=== PATIENT | female | born 1990 | race Caucasian/White ===

== ENCOUNTER 2016-05-18 17:34 | Emergency (ER) | END 2016-05-18 20:18 | disposition home or self-care (01) | DX: R51 Headache (principal); H53.8 Other visual disturbances ==

== ENCOUNTER 2016-12-26 09:43 | Emergency (ER) | payer OTHER ==
[~2016-12-26] VITALS: Ht 157.5 cm; Wt 55.0 kg
[~2016-12-26 09:43] MED LIST: ACET500C5 PO; CEPH-443 PO; IBUP400T22 PO; ONDA4TAB14 PO
[2016-12-26 09:47] VITALS: Ht 157.5 cm; Wt 55.0 kg
--- NOTE | 2016-12-26 10:14 | ERD ---
ER Documentation Chief Complaint Chief Complaint PAINFUL URINATION X 1 DAY HPI 26-year-old female otherwise healthy presents with painful urination and urgency 1 day. Patient states that her symptoms began yesterday afternoon just describes a burning sensation and pressure sensation in her suprapubic region. She has not had any fevers or chills, vomiting or hematuria or flank pain. She states that her last menstrual period was a week ago. Since then she has not had any vaginal bleeding, or abnormal vaginal discharge. ROS All systems reviewed and are negative except as per history of present illness. Medications Home Meds Active Scripts Phenazopyridine Hcl* (Pyridium*) 100 Mg Tab, 100 MG PO TID Y for URINARY PAIN, # 8 TAB Prov:EVANS ALEJANDRO PA-C 12/26/16 Nitrofurantoin Monohyd Macrocr* (Macrobid*) 100 Mg Capsr, 100 MG PO BID for 7 Days, CAP Prov:EVANS ALEJANDRO PA-C 12/26/16 Ondansetron (Ondansetron Odt) 4 Mg Tab.rapdis, 4 MG PO Q6H Y for NAUSEA AND/OR VOMITING, #10 TAB Prov:LYNDON DIAMOND PA-C 05/18/16 Acetaminophen* (Tylophen*) 500 Mg Capsule, 1 CAP PO Q6H Y for PAIN AND OR ELEVATED TEMP, #20 CAP Prov:LYNDON DIAMOND PA-C 05/18/16 Cephalexin* (Keflex*) 500 Mg Capsule, 500 MG PO TID for 7 Days, #21 CAP 0 Refills Prov:KAILASH GARCIA PA-C 09/03/15 Ibuprofen* (Motrin*) 400 Mg Tab, 400 MG PO Q6 for 7 Days, #30 TAB 0 Refills Prov:KAILASH GARCIA PA-C 09/03/15 Allergies Allergies: Coded Allergies: No Known Allergy (Unverified , 09/02/15) PMhx/Soc Hx Alcohol Use: No Hx Substance Use: No Hx Tobacco Use: No Physical Exam Vitals Vital Signs Date Time Temp Pulse Resp B/P Pulse Ox O2 Delivery O2 Flow Rate FiO2 12/26/16 09:47 98.5 76 16 111/57 100 Physical Exam General: Well-developed, well-nourished. The patient appears in no acute distress. HEENT: Head is normocephalic, atraumatic. No scleral icterus. Neck: Supple. Nontender. Lungs: Clear to auscultation. Normal air movement. Heart: Regular rate and rhythm. S1 and S2 are normal. No murmurs, gallops, or rubs. Abdomen: Nondistended. Soft, nontender, no CVA tenderness Extremities: No clubbing or cyanosis. Moving extremities x 4. No weakness. Neurologic: Alert and oriented 3. No focal deficits. Normal speech and gait. Skin: Normal turgor. No rash or lesions. Results 24 hrs Laboratory Tests Test 12/26/16 10:19 Bedside Urine pH (LAB) 7.5 Bedside Urine Protein (LAB) Negative Bedside Urine Glucose (UA) Negative Bedside Urine Ketones (LAB) Negative Bedside Urine Blood Negative Bedside Urine Nitrite (LAB) Negative Bedside Urine Leukocyte Esterase (L Negative Procedures/MDM 26-year-old female comes in with painful urination, urgency and frequency 1 day , most consistent with a urinary tract infection. Urine is negative at this time, but no other history concerning for PID, cervicitis, acute appendicitis, ovarian torsion, ectopic . She was started on Macrobid, Pyridium, and is to recheck her symptoms early next week with her primary care doctor. Departure Diagnosis: Primary Impression: Dysuria Condition: EVANS Ortiz PA-C Dec 26, 2016 10:14
[2016-12-26 10:21] LABS: URINE BLOOD (Dip) POC Negative (NEGATIVE)
[2016-12-26] MEDS ORDERED: NITR-58 PO (10:53)
[2016-12-26] MEDS ORDERED: PHEN-537 PO (10:53)
[2016-12-26 11:20] VITALS: TEMP 98.1
== END 2016-12-26 11:20 | disposition home or self-care (01) ==
LOC: FTE 09:43
DX: R30.0 Dysuria (principal)
CPT/HCPCS: 81003; Z7502; 99283

== ENCOUNTER 2017-01-01 20:12 | Emergency (ER) | payer OTHER ==
[~2017-01-01] VITALS: Ht 160 cm; Wt 56.2 kg
[~2017-01-01 20:12] MED LIST changes: +NITR-58 PO; +PHEN-537 PO
[2017-01-01 20:24] VITALS: Ht 160 cm; Wt 56.2 kg
[2017-01-01 23:45] LABS: URINE BLOOD (Dip) POC Trace-intact (NEGATIVE)
[2017-01-01] MEDS ORDERED: NAPR-260 PO (23:55)
[2017-01-01] MEDS ORDERED: CIPR500T4 PO (23:55)
[2017-01-01] MEDS ORDERED: CEPH-443 PO (23:59)
[2017-01-02] MEDS ORDERED: LIDOCAINE 1% (MDV) 20 ML INJ SC ONE
[2017-01-02] MEDS ORDERED: CEFTRIAXONE 1 GM INJ IM ONE
--- NOTE | 2017-01-02 17:33 | ERD ---
ER Documentation Chief Complaint Chief Complaint unable to urinate fully x1 day, recently diagnosed with UTI a week ago HPI Patient is a 26-year-old female presenting to the emergency department with complaints of urinary hesitancy, dribbling, dysuria intermittently for 1 week. The patient is here approximately 1 week ago with similar symptoms, finished a course of Macrobid, but continues to have symptoms. She denies hematuria, fevers, back pain, flank pain, nausea, vomiting, diarrhea, or other symptoms at this time. Symptoms are moderate in severity and intermittent at this time. ROS All systems reviewed and are negative except as per history of present illness. Medications Home Meds Active Scripts Cephalexin* (Keflex*) 500 Mg Capsule, 500 MG PO TID for 10 Days, #30 CAP Prov:DEE MARTINEZ PA-C 01/01/17 Naproxen* (Naprosyn*) 500 Mg Tablet, 500 MG PO BID Y for PAIN AND/OR INFLAMMATION, #20 TAB Prov:DEE MARTINEZ PA-C 01/01/17 Phenazopyridine Hcl* (Pyridium*) 100 Mg Tab, 100 MG PO TID Y for URINARY PAIN, # 8 TAB Prov:EVANS ALEJANDRO PA-C 12/26/16 Nitrofurantoin Monohyd Macrocr* (Macrobid*) 100 Mg Capsr, 100 MG PO BID for 7 Days, CAP Prov:EVANS ALEJANDRO PA-C 12/26/16 Ondansetron (Ondansetron Odt) 4 Mg Tab.rapdis, 4 MG PO Q6H Y for NAUSEA AND/OR VOMITING, #10 TAB Prov:LYNDON DIAMOND PA-C 05/18/16 Acetaminophen* (Tylophen*) 500 Mg Capsule, 1 CAP PO Q6H Y for PAIN AND OR ELEVATED TEMP, #20 CAP Prov:LYNDON DIAMOND PA-C 05/18/16 Cephalexin* (Keflex*) 500 Mg Capsule, 500 MG PO TID for 7 Days, #21 CAP 0 Refills Prov:KAILASH GARCIA PA-C 09/03/15 Ibuprofen* (Motrin*) 400 Mg Tab, 400 MG PO Q6 for 7 Days, #30 TAB 0 Refills Prov:KAILASH GARCIA PA-C 09/03/15 Discontinued Scripts Ciprofloxacin Hcl* (Ciprofloxacin Hcl*) 500 Mg Tablet, 500 MG PO BID for 10 Days , #20 TAB Prov:DEE MARTINEZ PA-C 01/01/17 Allergies Allergies: Coded Allergies: No Known Allergy (Unverified , 01/01/17) PMhx/Soc Medical and Surgical Hx: pt denies Medical Hx, pt denies Surgical Hx Hx Alcohol Use: No Hx Substance Use: No Hx Tobacco Use: No Smoking Status: Never smoker Physical Exam Vitals Vital Signs Date Time Temp Pulse Resp B/P Pulse Ox O2 Delivery O2 Flow Rate FiO2 01/01/17 20:24 99.9 81 18 105/65 98 Physical Exam Const: Nontoxic, well-appearing female in no acute distress. Head: Atraumatic Eyes: Normal Conjunctiva ENT: Normal External Ears, Nose and Mouth. Neck: Full range of motion..~ No meningismus. Resp: Clear to auscultation bilaterally Cardio: Regular rate and rhythm, no murmurs Abd: Soft, non tender, non distended. Normal bowel sounds Skin: No petechiae or rashes Back: No midline or flank tenderness. No CVA tenderness. Ext: No cyanosis, or edema Neur: Awake and alert Psych: Normal Mood and Affect Results 24 hrs Laboratory Tests Test 01/01/17 23:43 Bedside Urine pH (LAB) 5.0 Bedside Urine Protein (LAB) 2+ Bedside Urine Glucose (UA) 0.25% Bedside Urine Ketones (LAB) 2+ Bedside Urine Blood Trace-intact Bedside Urine Nitrite (LAB) Positive Bedside Urine Leukocyte Esterase (L 3+ Current Medications Medications (Trade) Dose Ordered Sig/Amilcar Route PRN Reason Start Time Stop Time Status Last Admin Dose Admin Ceftriaxone Sodium (Rocephin) 1 gm ONCE ONCE IM 01/02/17 00:00 01/02/17 00:01 DC 01/02/17 00:25 Lidocaine (Xylocaine 1% (Mdv) 20 ml) 20 ml ONCE ONCE SC 01/02/17 00:00 01/02/17 00:01 DC 01/02/17 00:25 Procedures/MDM Patient is a 26-year-old female presented to the emergency department for dysuria. Patient recently finished a course of Macrobid. Urine dip shows 2+ protein, 3+ leukocytes, positive nitrates, concerning for uncomplicated pyelonephritis. Patient is afebrile and vital signs remained stable throughout the ED course. Patient was given IM Rocephin to treat the pyelonephritis. Low suspicion for sepsis or other emergent conditions. She is stable for outpatient management with a perception for Keflex. She agreed with the discharge plan a diagnosis. No evidence of life-threatening pathology at time of discharge. Pt/family in agreement with discharge plan/diagnosis. Pt/family advised to return immediately with any new or worsening symptoms. Follow-up with primary care physician within the next 1-2 days. Disclaimer: Inadvertent spelling and grammatical errors are likely due to EHR/dictation software use and do not reflect on the overall quality of patient care. Also, please note that the electronic time recorded on this note does not necessarily reflect the actual time of the patient encounter. Departure Diagnosis: Primary Impression: Pyelonephritis Condition: Fair Patient Instructions: Pyelonephritis, Female (Adult) Referrals: [facility] YOU HAVE RECEIVED A MEDICAL SCREENING EXAM AND THE RESULTS INDICATE THAT YOU DO NOT HAVE A CONDITION THAT REQUIRES URGENT TREATMENT IN THE EMERGENCY DEPARTMENT. FURTHER EVALUATION AND TREATMENT OF YOUR CONDITION CAN WAIT UNTIL YOU ARE SEEN IN YOUR DOCTORS OFFICE WITHIN THE NEXT 1-2 DAYS. IT IS YOUR RESPONSIBILITY TO MAKE AN APPOINTMENT FOR FOLOW-UP CARE. IF YOU HAVE A PRIMARY DOCTOR --you should call your primary doctor and schedule an appointment IF YOU DO NOT HAVE A PRIMARY DOCTOR YOU CAN CALL OUR PHYSICIAN REFERRAL HOTLINE AT IF YOU CAN NOT AFFORD TO SEE A PHYSICIAN YOU CAN CHOSE FROM THE FOLLOWING [facility] [address] [facility]. [facility] [address] [facility]. [facility] [address] [facility] [facility] [address] [facility]. [facility] [address] [facility]. [facility]. [address] Additional Instructions: Follow up with your PCP within the next 1-3 days for a repeat evaluation. If you require a referral to a specialist, your Primary Care Provider may be able to provide this for you. In most patient cases, a referral is not required. If you have further questions regarding this matter, please ask your Primary Care Provider. Return the the emergency department immediately if symptoms worsen or change. If you have any questions regarding medications, ask your pharmacist or us before you leave. If any adverse reactions, occur while taking your medications, discontinue the treatment and return to the emergency department immediately. If any new or worsening symptoms, uncontrolled fevers, or other unexplained symptoms occur, return to the emergency department immediately. Take your medications as directed, and complete the entire course of treatment. DEE MARTINEZ PA-C Jan 02, 2017 17:33
== END 2017-01-02 00:34 | disposition home or self-care (01) ==
LOC: FTE 20:12
DX: N12 Tubulo-interstitial nephritis, not specified as acute or chronic (principal)
CPT/HCPCS: 81003; 87086; 96372; J0696; Z7502; Z7610